=== PATIENT | female | born 1990 | race Asian ===

== ENCOUNTER 2019-09-01 08:43 | Inpatient (IN) | payer OTHER ==
[~2019-09-01] VITALS: Ht 157.5 cm; Wt 56.4 kg
[2019-09-01] MEDS ORDERED: SODIUM CHLORIDE FLUSH 10ML SYR IVF ONE (09:30)
[2019-09-01] MEDS ORDERED: ONDANSETRON 2MG/ML, 2ML IVPush ONE (09:30)
[2019-09-01] MEDS ORDERED: HYDROmorphone 2 MG/ML, 1ML IVPush PRN (09:30)
[2019-09-01] MEDS ORDERED: ONDANSETRON 2MG/ML, 2ML ONE (09:37)
[2019-09-01] MEDS ORDERED: HYDROmorphone 1 MG/ML, 1ML INJ ONE (09:37)
[2019-09-01 09:38] LABS: BASOPHILS # (AUTO) 0.04 x10^3/uL (0-0.1); BASOPHILS % (AUTO) 0 % (0-1); EOSINOPHILS % (AUTO) 0 % (1-7); LYMPHOCYTES # (AUTO) 0.37 x10^3/uL (1-3.4); LYMPHOCYTES % (AUTO) 3 % (22-44); MD NO; MEAN CORPUSCULAR HEMOGLOBIN 29.3 pg (27.0-34.8); MEAN CORPUSCULAR HGB CONC 33.1 g/dL (32.4-35.8); MEAN CORPUSCULAR VOLUME 88.4 fL (80-100); MEAN PLATELET VOLUME 7.6 fL (7.4-10.4); MONOCYTES % (AUTO) 5 % (2-9); NEUTROPHILS # (AUTO) 12.23 x10^3/uL (1.8-6.8); NEUTROPHILS % (AUTO) 92 % (42-75); PLATELET COUNT 250 x10^3/uL (130-400); RED BLOOD COUNT 4.53 x10^6/uL (3.82-5.3); RED CELL DISTRIBUTION WIDTH 12.5 % (9.6-15.2)
[2019-09-01 09:48] LABS: ALANINE AMINOTRANSFERASE 723 U/L (12-78); ALBUMIN 3.5 g/dL (3.4-5.0); ANION GAP 8 mmol/L (5-15); CALCIUM 9.1 mg/dL (8.5-10.1); CHLORIDE 106 mmol/L (98-107); CREATININE 0.62 mg/dL (0.55-1.02)
[2019-09-01 09:53] LABS: ALKALINE PHOSPHATASE 66 U/L (45-117); TOTAL PROTEIN 6.9 g/dL (6.4-8.2)
--- NOTE | 2019-09-01 10:13 | NUR ---
REPORT RC'VD FROM DEVONTE UMANZOR AND CARE OF PT ASSUMED. PT VERBALIZES ABD PAIN RELIEF AFTER DILAUDID. RESTING IN GURNEY. UNDERSTANDS POC.
[2019-09-01] MEDS ORDERED: OMNIPAQUE 350 MG/ML, 100ML BOTTLE ONE (10:34)
--- NOTE | 2019-09-01 10:51 | NUR ---
ERP WAS IN TO REVIEW POC WITH PT, SHE VERBALIZES UNDERSTANDING.
[2019-09-01] MEDS ORDERED: SODIUM CHLORIDE 0.9% 1,000ML IVBOLUS ONE (11:00)
--- NOTE | 2019-09-01 11:01 | NUR ---
TERESA WAS IN TO SPEAK WITH PT ABOUT PLAN FOR ADMISSION, SHE VERBALIZES UNDERSTANDING.
--- NOTE | 2019-09-01 11:06 | NUR ---
PT AMBULATED TO BR WITHOUT DIFFICULTY.
[2019-09-01 11:13] LABS: MICROSCOPIC INDICATED
--- NOTE | 2019-09-01 11:33 | NUR ---
ADMITTING AT . Addendum: 09/01/19 at 1207 by ROSALBA TAHIR SANTILLAN AT .
--- NOTE | 2019-09-01 11:55 | NUR ---
PT TO MRI VIA [facility]. REPORTED TO MP GRESHAM RN ON MEDICAL FLOOR.
[2019-09-01] MEDS ORDERED: morphine SULFATE 10 MG/ML, 1ML IVPush PRN (14:30)
[2019-09-01] MEDS ORDERED: OXYcodone IR 5MG TABLET PO PRN (14:30)
[2019-09-01] MEDS ORDERED: ONDANSETRON 2MG/ML, 2ML IVPush PRN (14:30)
[2019-09-01] MEDS ORDERED: LABETALOL 5MG/ML, 20ML IVPush PRN (14:30)
[2019-09-01] MEDS ORDERED: hydrALAzine 20 MG/ML, 1ML IVPush PRN (14:30)
[2019-09-01] MEDS: LACTATED RINGERS 1,000 ML IV SCH ×5 (14:51→21:53)
[2019-09-01] MEDS: HEPARIN 5,000 UNITS/ML, 1ML SQ SCH ×2 (14:52→22:33)
[2019-09-01 15:00] VITALS: BP 115/70
[2019-09-01 19:05] VITALS: BP 108/70
[2019-09-02 01:21] VITALS: BP 112/73
[2019-09-02 06:22] VITALS: BP 111/79
[2019-09-02] MEDS: HEPARIN 5,000 UNITS/ML, 1ML SQ SCH ×3 (07:00→23:00)
[2019-09-02] MEDS: LACTATED RINGERS 1,000 ML IV SCH (07:06)
[2019-09-02 08:49] LABS: BASOPHILS # (AUTO) 0.03 x10^3/uL (0-0.1); BASOPHILS % (AUTO) 0 % (0-1); EOSINOPHILS # (AUTO) 0.15 x10^3/uL (0-0.4); EOSINOPHILS % (AUTO) 2 % (1-7); LYMPHOCYTES # (AUTO) 1.46 x10^3/uL (1-3.4); LYMPHOCYTES % (AUTO) 17 % (22-44); MD NO; MEAN CORPUSCULAR HEMOGLOBIN 29.3 pg (27.0-34.8); MEAN CORPUSCULAR HGB CONC 32.7 g/dL (32.4-35.8); MEAN CORPUSCULAR VOLUME 89.8 fL (80-100); MEAN PLATELET VOLUME 7.5 fL (7.4-10.4); MONOCYTES # (AUTO) 0.32 x10^3/uL (0.2-0.8); MONOCYTES % (AUTO) 4 % (2-9); NEUTROPHILS # (AUTO) 6.43 x10^3/uL (1.8-6.8); NEUTROPHILS % (AUTO) 77 % (42-75); PLATELET COUNT 238 x10^3/uL (130-400); RED BLOOD COUNT 4.35 x10^6/uL (3.82-5.3); RED CELL DISTRIBUTION WIDTH 12.8 % (9.6-15.2)
[2019-09-02 08:58] LABS: ALANINE AMINOTRANSFERASE 517 U/L (12-78); ANION GAP 8 mmol/L (5-15); CALCIUM 8.2 mg/dL (8.5-10.1); CHLORIDE 108 mmol/L (98-107); CREATININE 0.55 mg/dL (0.55-1.02)
[2019-09-02 09:00] LABS: ALKALINE PHOSPHATASE 67 U/L (45-117); BILIRUBIN,TOTAL 1.4 mg/dL (0.2-1.0); TOTAL PROTEIN 6.8 g/dL (6.4-8.2)
[2019-09-02] MEDS ORDERED: LACTATED RINGERS 1,000 ML IV SCH (12:30)
[2019-09-02 15:17] VITALS: BP 108/73
[2019-09-02] MEDS: POTASSIUM CHLORIDE 10 MEQ in D5%-0.45% NACL 1,000 ML IV SCH (18:11)
[2019-09-02 20:20] VITALS: BP 111/75
[2019-09-03 01:31] VITALS: BP 114/71
[2019-09-03] MEDS: POTASSIUM CHLORIDE 10 MEQ in D5%-0.45% NACL 1,000 ML IV SCH ×2 (03:26→12:30)
[2019-09-03 06:15] LABS: BASOPHILS # (AUTO) 0.02 x10^3/uL (0-0.1); BASOPHILS % (AUTO) 0 % (0-1); EOSINOPHILS # (AUTO) 0.25 x10^3/uL (0-0.4); EOSINOPHILS % (AUTO) 5 % (1-7); LYMPHOCYTES # (AUTO) 1.29 x10^3/uL (1-3.4); LYMPHOCYTES % (AUTO) 23 % (22-44); MD NO; MEAN CORPUSCULAR HGB CONC 32.8 g/dL (32.4-35.8); MEAN CORPUSCULAR VOLUME 88.7 fL (80-100); MONOCYTES # (AUTO) 0.44 x10^3/uL (0.2-0.8); MONOCYTES % (AUTO) 8 % (2-9); NEUTROPHILS # (AUTO) 3.61 x10^3/uL (1.8-6.8); NEUTROPHILS % (AUTO) 64 % (42-75); PLATELET COUNT 229 x10^3/uL (130-400); RED CELL DISTRIBUTION WIDTH 13.1 % (9.6-15.2)
[2019-09-03 06:17] LABS: ALBUMIN 2.7 g/dL (3.4-5.0); ANION GAP 8 mmol/L (5-15); CALCIUM 7.9 mg/dL (8.5-10.1); CHLORIDE 109 mmol/L (98-107)
[2019-09-03 06:22] LABS: ALANINE AMINOTRANSFERASE 345 U/L (12-78); ALKALINE PHOSPHATASE 54 U/L (45-117); BILIRUBIN,TOTAL 0.5 mg/dL (0.2-1.0); CREATININE 0.48 mg/dL (0.55-1.02); TOTAL PROTEIN 6.2 g/dL (6.4-8.2)
[2019-09-03] MEDS: HEPARIN 5,000 UNITS/ML, 1ML SQ SCH ×2 (07:00→15:00)
[2019-09-03 07:05] VITALS: BP 118/72
[2019-09-03 12:24] VITALS: BP 100/67
== END 2019-09-03 17:17 | disposition home or self-care (01) | DRG 444 ==
LOC: ED 09:24 → 3N 11:21 → DCLOUNGE 09-03 16:56
PROVIDERS: ADMIT Internal Medicine; ATTEND Internal Medicine
DX: K80.21 Calculus of gallbladder without cholecystitis with obstruction (principal); K85.10 Biliary acute pancreatitis without necrosis or infection; E16.2 Hypoglycemia, unspecified; E87.6 Hypokalemia; Z90.49 Acquired absence of other specified parts of digestive tract
CPT/HCPCS: 36415; 74177; 74181; 80053; 81001; 83690; 84703; 85025; 96374; G0378; J1170; J2405; J3480; Q9967; J7030; J7120